=== PATIENT | male | born 1985 | race Two or more races ===

== ENCOUNTER 2018-06-02 21:59 | Emergency (ER) | payer SELFPAY ==
[~2018-06-02] VITALS: Ht 175.3 cm; Wt 74.8 kg
[2018-06-02 23:00] VITALS: BP 139/76
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
== END 2018-06-02 23:04 | disposition left against medical advice (07) ==
LOC: ER 22:40
DX: Z53.21 Procedure and treatment not carried out due to patient leaving prior to being seen by health care provider (principal); R03.0 Elevated blood-pressure reading, without diagnosis of hypertension; R53.1 Weakness